=== PATIENT | male | born 1955 | race Hispanic/Latino ===

== ENCOUNTER → 2023-10-25 | Emergency (ER) | payer OTHER, MEDICARE ==
[~2023-10-25] VITALS: Ht 157.5 cm; Wt 78.0 kg
[~2023-10-25] MED LIST: OMEP40CA21 PO
[2023-10-25 16:27] VITALS: BP 153/84; PULSE 97; RESP 14
[2023-10-25 16:59] LABS: BASOPHILS # (AUTO) 0.07 K/uL (0.00-0.20); BASOPHILS % (AUTO) 0.6 % (0.0-5.0); EOSINOPHILS # (AUTO) 0.14 K/uL (0.00-0.70); EOSINOPHILS % (AUTO) 1.3 % (0.0-8.0); HEMATOCRIT 42.5 % (42-54); IMMATURE GRANULOCYTE ABSOLUTE 0.04 K/uL (0-1); LYMPHOCYTES % (AUTO) 27.4 % (21.0-51.0); MEAN CORPUSCULAR HEMOGLOBIN 29.2 pg (27.0-33.0); MEAN CORPUSCULAR HGB CONC 34.4 g/dL (32.0-36.0); MONOCYTES # (AUTO) 0.7 K/uL (0.1-1.0); MONOCYTES % (AUTO) 6.2 % (3.0-13.0); NEUTROPHILS % (AUTO) 64.1 % (40.0-77.0); PLATELET COUNT (AUTO) 206 K/uL (130-400); RED CELL DISTRIBUTION WIDTH 14.1 % (11.0-15.5); WHITE BLOOD COUNT (AUTO) 10.9 K/uL (4.8-10.8)
[2023-10-25 17:26] LABS: ALBUMIN 3.9 g/dL (3.5-5.0); BILIRUBIN,TOTAL 0.8 mg/dL (0.2-1.0); CREATININE 1.2 mg/dL (0.5-1.3); POTASSIUM 3.1 mmol/L (3.5-5.1); TOTAL PROTEIN, SERUM 8.5 g/dL (6.0-8.3)
[2023-10-25] MEDS: ONDANSETRON ODT 4MG TAB SL ONE (18:17)
[2023-10-25] MEDS: LORAZEPAM 1 MG TABLET PO ONE (18:17)
[2023-10-25] MEDS: KCL 20 MEQ ERTAB PO ONE (18:51)
== END ==
LOC: EDH 16:15
DX: R11.0 Nausea (principal); F41.9 Anxiety disorder, unspecified; I10 Essential (primary) hypertension; E78.00 Pure hypercholesterolemia, unspecified; K21.9 Gastro-esophageal reflux disease without esophagitis; E78.5 Hyperlipidemia, unspecified; F10.10 Alcohol abuse, uncomplicated
CPT/HCPCS: 36415; 71045; 80053; 83690; 83735; 83880; 84484; 85025; 93005

== ENCOUNTER 2023-10-28 09:19 | Emergency (ER) | payer OTHER, MEDICARE ==
[~2023-10-28] VITALS: Ht 157.5 cm; Wt 78.0 kg
[2023-10-28 09:42] LABS: HEMATOCRIT 42.6 % (42-54); MEAN CORPUSCULAR HEMOGLOBIN 29.6 pg (27.0-33.0); MEAN CORPUSCULAR HGB CONC 34.5 g/dL (32.0-36.0); MEAN CORPUSCULAR VOLUME 85.7 fL (79-99); RED BLOOD CELL COUNT(AUTO) 4.97 MIL/uL (4.50-6.20); RED CELL DISTRIBUTION WIDTH 14.1 % (11.0-15.5); WHITE BLOOD COUNT (AUTO) 8.3 K/uL (4.8-10.8)
[2023-10-28 10:00] LABS: ALBUMIN 3.9 g/dL (3.5-5.0); BILIRUBIN,TOTAL 1.3 mg/dL (0.2-1.0); CREATININE 1.3 mg/dL (0.5-1.3); POTASSIUM 3.1 mmol/L (3.5-5.1); TOTAL PROTEIN, SERUM 8.2 g/dL (6.0-8.3)
[2023-10-28 13:45] VITALS: BP 151/88; PULSE 69; RESP 14; O2SAT 97
[2023-10-28] MEDS ORDERED: OMEP40CA21 PO (13:47)
== END 2023-10-28 14:03 | disposition home or self-care (01) ==
LOC: EDH 09:19
DX: A05.9 Bacterial foodborne intoxication, unspecified (principal); R19.7 Diarrhea, unspecified; K21.9 Gastro-esophageal reflux disease without esophagitis; E78.00 Pure hypercholesterolemia, unspecified; I10 Essential (primary) hypertension
CPT/HCPCS: 36415; 80053; 84484; 85027; 93005

== ENCOUNTER 2024-09-06 12:26 | Inpatient (IN) | payer OTHER, MEDICARE ==
[~2024-09-06] VITALS: Ht 157.5 cm; Wt 87.5 kg
[2024-09-06] VITALS (9 sets, daily range): BP systolic 136–159; BP diastolic 64–86; PULSE 92–110; RESP 18–21; TEMP 98.2–98.5; O2SAT 91
[2024-09-06] MEDS: GLUCAGON 1MG KIT 1 MG ML IM SCH (13:22)
--- NOTE | 2024-09-06 14:14 | ERN ---
ED Note History of Present Illness Stated Complaint: FOREIGN BODY IN THROAT Chief Complaint: Swallowed Foreign Body Time Seen by MD: 12:26 Dictation: 69-year-old male presents to the ED for evaluation of foreign body in throat onset 1 hour ago. Patient reports he was eating a piece of steak and felt it got stuck in his throat, patient mentioned he was unable to swallow water. Allergies: Coded Allergies: No Known Drug Allergies (Unverified Allergy, Unknown, 10/25/23) Home Meds Active Scripts Omeprazole (Omeprazole) 40 Mg Capsule., 40 MG PO DAILY, #30 CAP Prov:RYANN BELLO [employer] 10/28/23 Past Medical History Past Medical History: GERD, High Cholesterol, Hypertension, Stroke Surgical History: Other Surgical History Other: ESOPHAGEAL DILATION Review of System Dictation Constitutional: Negative for fever,chills, and weight loss Eyes: Negative for injury, pain,redness, and discharge ENT: Throat foreign body Negative for injury,pain or swelling Cardiovascular: Negative for chest pain, palpitations, and edema Respiratory: Negative for shortness of breath, cough, and wheezing, Abdomen/GI: Negative for abdominal pain, nausea, vomiting, diarrhea, and constipation Back: Negative for injury and pain : Negative for injury, bleeding and discharge MS/Extremity: Negative for injury and deformity Skin: Negative for rash, and discoloration Neuro: Negative for headache, weakness, numbness, tingling, and seizure Psych: Negative for suicide ideation, homicidal ideation, and hallucinations Initial Vital Sign VS Vital Signs Date Time Temp Pulse Resp B/P (MAP) Pulse Ox O2 Delivery O2 Flow Rate FiO2 09/06/24 12:31 98.2 103 18 70/ 95 Room Air 0 09/06/24 14:32 21 Physical Exam Dictation General: awake, alert, appears uncomfortable Head/Face: Normocephalic, atraumatic Eyes: PERRL, EOMI, vision at baseline ENT: oral cavity clear, TMs clear, no signs of infection Neck: Trachea midline, supple, no nuchal rigidity Cardiovascular: RRR, normal S1/S2, No MRGs, no JVD Respiratory: CTAB, no respiratory distress, No rales or wheezes Abdomen: Soft, non-tender, non-distended, normal bowel sounds, no guarding or rebound. Skin: Warm, dry, normal turgor, no rash MS/Extremity: Pulses equal, no cyanosis, neurovascular intact, FROM Neuro: COAx4, GCS 15, strength 5/5, CN 2-12 intact, normal cerebellar exam, normal gait, Psych: Normal behavior, mood, and affect normal Results (Laboratory/Radiology) Laboratory/Radiology Laboratory Tests Test 09/06/24 15:45 White Blood Count 12.9 K/uL (4.8-10.8) H Red Blood Count 4.89 MIL/uL (4.50-6.20) Hemoglobin 14.6 g/dL (14.0-18.0) Hematocrit 42.5 % (42-54) Mean Corpuscular Volume 86.9 fL (79-99) Mean Corpuscular Hemoglobin 29.9 pg (27.0-33.0) Mean Corpuscular Hemoglobin Concent 34.4 g/dL (32.0-36.0) Red Cell Distribution Width 14.8 % (11.0-15.5) Platelet Count 197 K/uL (130-400) Mean Platelet Volume 10.8 fL (7.5-10.5) H Immature Granulocyte % (Auto) 0.6 % (0-1) Neutrophils (%) (Auto) 71.3 % (40.0-77.0) Lymphocytes (%) (Auto) 20.8 % (21.0-51.0) L Monocytes (%) (Auto) 5.8 % (3.0-13.0) Eosinophils (%) (Auto) 1.0 % (0.0-8.0) Basophils (%) (Auto) 0.5 % (0.0-5.0) Neutrophils # (Auto) 9.2 K/uL (1.8-7.7) H Lymphocytes # (Auto) 2.7 K/uL (1.0-4.8) Monocytes # (Auto) 0.8 K/uL (0.1-1.0) Eosinophils # (Auto) 0.13 K/uL (0.00-0.70) Basophils # (Auto) 0.07 K/uL (0.00-0.20) Absolute Immature Granulocyte (auto 0.08 K/uL (0-1) Nucleated Red Blood Cells 0.0 % (0.0-0.19) Sodium Level 140 mmol/L (136-145) Potassium Level 3.4 mmol/L (3.5-5.1) L Chloride Level 102 mmol/L (101-111) Carbon Dioxide Level 28 mmol/L (21-32) Blood Urea Nitrogen 19 mg/dL (7-18) H Creatinine 1.5 mg/dL (0.5-1.3) H Glomerular Filtration Rate Calc 49 mL/min (>90) Random Glucose 103 mg/dL (70-105) Total Calcium 9.4 mg/dL (8.5-10.1) Labs Reviewed?: Yes ED Course ED Course Orders Procedure Category Date Status Time Glucagon 1mg Kit PHA 09/06/24 In Process (Glucagon 1mg Kit) 13:00 Cbc With Differential LAB 09/06/24 Complete 15:26 Basic Metabolic Panel LAB 09/06/24 Complete 15:26 0.9% Nacl 500ml PHA 09/06/24 Complete Iv.Soln (Ns 500ml 15:30 Consent Egd CPOE 09/06/24 Transmitted 16:10 Obtain Consent For: CPOE 09/06/24 Transmitted 16:10 Current Medications Medications (Trade) Dose Ordered Sig/Pablo Route PRN Reason Start Time Stop Time Status Last Admin Dose Admin Glucagon (Glucagon 1mg Kit) 1 mg ONCE IM 09/06/24 13:00 10/06/24 12:59 09/06/24 13:22 Sodium Chloride 500 ml @ 0 mls/hr ONCE ONCE IV 09/06/24 15:30 09/06/24 15:31 DC Vital Signs Date Time Temp Pulse Resp B/P (MAP) Pulse Ox O2 Delivery O2 Flow Rate FiO2 09/06/24 15:57 98.8 87 20 164/72 100 Room Air* 0 21 09/06/24 14:32 98.8 68 20 161/63 100 Room Air* 0 21 09/06/24 12:31 98.2 103 18 70/ 95 Room Air 0 Medical Decision Making MDM MDM: Differential diagnosis: Food bolus, throat FB 5306- GI consult Dipti 1618- Hospitalist consult, accepts patient for admission Risk of complication and/or morbidity or mortality of patient management: None Medications-Per medication reconciliation Need for hospitalization: Patient does meet criteria for hospitalization. Need for emergency major/minor surgery: No There are no social concerns with this patient. I independently interpreted the test that were performed, results were reviewed by me and considered findings on radiology if ordered. DX & DISP Disposition: Inpatient Decision to Admit Date: Sep 06, 2024 Decision to Admit Time: 16:18 Departure Impression: Primary Impression: Food bolus Condition: Stable Referrals: LINH VALENTE MD (PCP) MICHELLE ROSA MD Sep 06, 2024 14:14
[2024-09-06] MEDS: 0.9% NACL 500ML IV.SOLN 500 ML IV ONE (15:30)
[2024-09-06 15:58] LABS: BASOPHILS # (AUTO) 0.07 K/uL (0.00-0.20); BASOPHILS % (AUTO) 0.5 % (0.0-5.0); EOSINOPHILS # (AUTO) 0.13 K/uL (0.00-0.70); HEMATOCRIT 42.5 % (42-54); IMMATURE GRANULOCYTE ABSOLUTE 0.08 K/uL (0-1); LYMPHOCYTES # (AUTO) 2.7 K/uL (1.0-4.8); LYMPHOCYTES % (AUTO) 20.8 % (21.0-51.0); MEAN CORPUSCULAR HEMOGLOBIN 29.9 pg (27.0-33.0); MEAN CORPUSCULAR HGB CONC 34.4 g/dL (32.0-36.0); MEAN CORPUSCULAR VOLUME 86.9 fL (79-99); MONOCYTES # (AUTO) 0.8 K/uL (0.1-1.0); MONOCYTES % (AUTO) 5.8 % (3.0-13.0); NEUTROPHILS # (AUTO) 9.2 K/uL (1.8-7.7); NEUTROPHILS % (AUTO) 71.3 % (40.0-77.0); PLATELET COUNT (AUTO) 197 K/uL (130-400); RED BLOOD CELL COUNT(AUTO) 4.89 MIL/uL (4.50-6.20); RED CELL DISTRIBUTION WIDTH 14.8 % (11.0-15.5); WHITE BLOOD COUNT (AUTO) 12.9 K/uL (4.8-10.8)
[2024-09-06 16:08] LABS: CREATININE 1.5 mg/dL (0.5-1.3); POTASSIUM 3.4 mmol/L (3.5-5.1)
--- NOTE | 2024-09-06 16:49 | HP ---
[facility] HISTORY & PHYSICAL Date Patient Seen: Sep 06, 2024 Time of Visit: 2044 Supervising Physician: [Dr. Kevin Chahal] Primary Care Physician: [Dr. Ng ] Outpatient Specialists: [ ] Inpatient Consults: [GI: Dr. Rojas/Dipti TOPETE ] PROBLEM LIST: Dysphagia and odynophagia 2/2 food impaction - POA Esophageal obstruction-POA Leukocytosis, likely reactive-POA KAI 2/2 possible dehydration -POA Mild hypokalemia-POA HX of esophageal stricture s/p dilation Primary HTN HLD HX of CVA PLAN: -Admit to medsurg unit -Patient is s/p EGD 09/06/24 for food impaction relief -Keep patient NPO until cleared by GI -IV fluids for hydration -Monitor electrolytes, replete PRN -Manage pain and N/V PRN -Supportive care and oxygenation maintenance -RN to obtain complete medlist for reconciliation HPI: [Patient is a 69-year-old male with PMH significant for previous esophageal stricture s/p dilation, HTN, HLD and prior CVA who has presented at the ED concerning food impaction. Patient claims he ate some steak this morning and got choked-up. He knew it was similar to his prior episode of obstruction as he was gagging and felt dysphagia and odynophagia so he decided to come to the ED for relief. He was initially given Glucagon without resolution so GI specialist was consulted by ED practitioner. He was eventually brought to the GI lab for EGD and afterwards, I get to evaluate him in room 305. BMP was repeated to verify status of his kidney function, potassium and magnesium level. Physical assessment was unrevealing and patient is back on his baseline. He claims he still feels a little bit of odynophagia but not as much compared from earlier. Goals of care were discussed with the patient verbalizing understanding and agreement.] PAST MEDICAL HX: see above PAST SURGICAL HX: noncontributory SOCIAL HISTORY: No tobacco, ETOH, or illicit drug use Coded Allergies: No Known Drug Allergies (Unverified Allergy, Unknown, 10/25/23) REVIEW OF SYSTEMS: 12 point ROS reviewed with patient. Pertinent positives mentioned above. Otherwise negative. PHYSICAL EXAM: GENERAL: alert, weak, awake oriented x 3 HEENT: EOMI, Sclera non icteric, moist mucosa NECK: Supple, no JVD, trachea midline, short and wide LUNGS: Clear breath sounds bilaterally. No wheezes HEART: Regular rate and rhythm. Normal S1 and S2, without murmurs ABD: Abdomen soft, nontender. Bowel sounds present EXT: No clubbing cyanosis, 2+ pitting edema on BLE NEURO: Alert and oriented to person, follows commands Vital Signs (last 8hr) Date Time Temp Pulse Resp B/P (MAP) Pulse Ox O2 Delivery O2 Flow Rate FiO2 09/06/24 15:57 98.8 87 20 164/72 100 Room Air* 0 21 09/06/24 14:32 98.8 68 20 161/63 100 Room Air* 0 21 09/06/24 12:31 98.2 103 18 70/ 95 Room Air 0 LABS: Hematology Labs: Test 09/06/24 15:45 Range/Units White Blood Count 12.9 H 4.8-10.8 K/uL Red Blood Count 4.89 4.50-6.20 MIL/uL Hemoglobin 14.6 14.0-18.0 g/dL Hematocrit 42.5 42-54 % Mean Corpuscular Volume 86.9 79-99 fL Mean Corpuscular Hemoglobin 29.9 27.0-33.0 pg Mean Corpuscular Hemoglobin Concent 34.4 32.0-36.0 g/dL Red Cell Distribution Width 14.8 11.0-15.5 % Platelet Count 197 130-400 K/uL Mean Platelet Volume 10.8 H 7.5-10.5 fL Immature Granulocyte % (Auto) 0.6 0-1 % Neutrophils (%) (Auto) 71.3 40.0-77.0 % Lymphocytes (%) (Auto) 20.8 L 21.0-51.0 % Monocytes (%) (Auto) 5.8 3.0-13.0 % Eosinophils (%) (Auto) 1.0 0.0-8.0 % Basophils (%) (Auto) 0.5 0.0-5.0 % Neutrophils # (Auto) 9.2 H 1.8-7.7 K/uL Lymphocytes # (Auto) 2.7 1.0-4.8 K/uL Monocytes # (Auto) 0.8 0.1-1.0 K/uL Eosinophils # (Auto) 0.13 0.00-0.70 K/uL Basophils # (Auto) 0.07 0.00-0.20 K/uL Absolute Immature Granulocyte (auto 0.08 0-1 K/uL Nucleated Red Blood Cells 0.0 0.0-0.19 % Chemistry Labs: Test 09/06/24 15:45 Range/Units Sodium Level 140 136-145 mmol/L Potassium Level 3.4 L 3.5-5.1 mmol/L Chloride Level 102 101-111 mmol/L Carbon Dioxide Level 28 21-32 mmol/L Blood Urea Nitrogen 19 H 7-18 mg/dL Creatinine 1.5 H 0.5-1.3 mg/dL Glomerular Filtration Rate Calc 49 >90 mL/min Random Glucose 103 70-105 mg/dL Total Calcium 9.4 8.5-10.1 mg/dL DIAGNOSTICS / RADIOLOGY RESULTS: [ ] PLAN NEURO: Minimize central acting medications as possible. Maintain fall precautions, adequate lighting during the day PULMONARY: Supplemental 02 as needed. Maintain aspiration precautions at all times CARDIOVASCULAR: Follow hemodynamics. Vital signs per facility protocol GI & NUTRITION: Continue with nutritional support. Continue stool softeners and laxatives as needed. KIDNEYS & ELECTROLYTES: Strict monitoring of intake, output and overall fluid balance. Avoid nephrotoxic medications to the extent possible. Medications to be dosed according to renal function. Monitor electrolytes and replace as needed ENDOCRINE: Maintain blood glucose between 100-180 at all times. Hypoglycemia protocol in place INFECTIOUS DISEASE: Trend temperature, WBC and procalcitonin level Follow cultures, deescalate antibiotics as soon as possible. Panculture if new onset fever ONCOLOGY/HEMATOLOGY/COAGULATION: Monitor for s/s of bleeding Monitor hemoglobin, coagulation studies as needed SKIN: Pressure ulcer prevention per facility protocol Specialty mattress ORTHO/REHAB: Continue PT/OT Prophylaxis: Continue GI and DVT prophylaxis Code Status: Full Resuscitation Disposition: TBD Other: Total patient care time: 35 minutes CLARITA LOMAS AGPCNP Sep 06, 2024 16:49
[2024-09-06] MEDS: 0.9%NACL 1000ML 1,000 ML IV SCH (17:00)
--- NOTE | 2024-09-06 17:24 | NUR ---
PT TO GI LAB WITH RN.
[2024-09-06] MEDS ORDERED: SUCCINYLCHOLINE CHLORIDE 20 MG/ML 10 ML VIAL ONE (17:32)
[2024-09-06] MEDS ORDERED: FENTanyl CITRate PF 50 MCG/1 ML 2ML VIAL ONE (17:32)
[2024-09-06] MEDS ORDERED: dexaMETHasone SOD PHOSPHATE 10MG/ML 1ML VIAL ONE (17:33)
[2024-09-06] MEDS ORDERED: LIDOCAINE PF 100MG/5ML (2%) SYRINGE 5ML ONE (17:33)
[2024-09-06] MEDS ORDERED: ondanSETRON 4MG INJ ONE (17:33)
[2024-09-06] MEDS ORDERED: proPOFol 10 MG/ML 20ML VIAL IV ONE (17:33)
[2024-09-06] MEDS: FAMOTIDINE 20MG VIAL IV ONE (17:58)
--- NOTE | 2024-09-06 18:41 | NUR ---
GI LAB CALLED FOR PT GLASSES, GLASSES ARE BEING RETURNED TO PT ROOM
--- NOTE | 2024-09-06 18:51 | NUR ---
PT TRANSPORTED TO [facility] BY GI LAB
--- NOTE | 2024-09-06 19:00 | NUR ---
ADMIT PT ARRIVED TO FLOOR WITH GI NURSE. NO REPORT WAS CALLED FROM ER NOR GI LAB TO STAFF ON FLOOR. RECEIVED REPORT FROM GI LAB STAFF. PLACED PT IN ROOM 305. ADMISSION CARE DONE. POSITIONED COMFORTABLY IN BED WITH HOB ELEVATED. STARTED PT ON POST OP V/S, STABLE. ORIENTED TO ROOM AND UNIT. IN FOR MORE CARE AND MANAGEMENT.
--- NOTE | 2024-09-06 20:15 | NUR ---
ASSESS ADMISSION ASSESSMENT DONE, PLEASE REFER TO CHART. PLACED IVF OF NS TO IV PUMP AND REGULATED AT 50CC/HR ORDERED. PROVIDED PT WITH WATER AND IS ABLE TO SWALLOW WITHOUT ANY DIFFICULTY. CONTINUED ON POST OP V/S. NOTED O2 SATS LOWER THAN 92%. PLACED PT ON O2 AT 2LPM VIA NC. O2 SATS INCREASED TO 95% WITH O2 ON. BED ALARM ACTIVATED.
--- NOTE | 2024-09-06 20:45 | NUR ---
SURGERY AID EFREM OTTO, IN TO SEE PT. NEW ORDERS RECEIVED, PLEASE REFER TO CPOE.
[2024-09-06] MEDS ORDERED: LAbetaLOL 20MG SYG IV PRN (21:00)
[2024-09-06] MEDS ORDERED: DEXTROSE 50%-WATER 50 ML DISP.SYRIN IV PRN (21:00)
[2024-09-06] MEDS ORDERED: acetaMINOPHEN 650 MG SUPPOSITORY RC PRN (21:00)
[2024-09-06] MEDS: INSULIN humuLIN R 100 UNIT/ML 3ML SQ SCH (21:00)
[2024-09-06] MEDS ORDERED: GLUCAGON 1MG KIT 1 MG ML IM PRN (21:00)
[2024-09-06] MEDS ORDERED: ondanSETRON 4MG INJ IVP PRN (21:00)
[2024-09-06] MEDS ORDERED: PoTASSium chloRIDE 10MEQ/100ML 100 ML IV PRN ×2 (21:30→22:00)
[2024-09-06 21:54] LABS: CREATININE 1.3 mg/dL (0.5-1.3); MAGNESIUM 1.9 mg/dL (1.80-2.40); POTASSIUM 3.2 mmol/L (3.5-5.1)
[2024-09-06] MEDS: PoTASSium chl 10% ELIXIR 20MEQ 20 MEQ/15 ML UDCUP PO PRN (22:02)
[2024-09-06] MEDS: MAGNESIUM 2GM PREMIX 50ML 50 ML IV PRN (22:02)
[2024-09-06] MEDS ORDERED: OMEP40CA21 PO (23:56)
[2024-09-06] MEDS ORDERED: AMLO-142 PO (23:56)
[2024-09-06] MEDS ORDERED: ROSU20TA98 PO (23:56)
[2024-09-06] MEDS ORDERED: TAMS-1 PO (23:56)
[2024-09-07] VITALS (7 sets, daily range): BP systolic 128–154; BP diastolic 74–93; PULSE 93–105; RESP 17–19; TEMP 98–98.4; O2SAT 95
[2024-09-07 04:40] LABS: BASOPHILS # (AUTO) 0.01 K/uL (0.00-0.20); BASOPHILS % (AUTO) 0.1 % (0.0-5.0); HEMATOCRIT 41.3 % (42-54); IMMATURE GRANULOCYTE ABSOLUTE 0.03 K/uL (0-1); LYMPHOCYTES % (AUTO) 10.1 % (21.0-51.0); MEAN CORPUSCULAR HEMOGLOBIN 29.2 pg (27.0-33.0); MEAN CORPUSCULAR HGB CONC 33.9 g/dL (32.0-36.0); MEAN CORPUSCULAR VOLUME 86.2 fL (79-99); MONOCYTES # (AUTO) 0.1 K/uL (0.1-1.0); MONOCYTES % (AUTO) 1.1 % (3.0-13.0); NEUTROPHILS # (AUTO) 8.7 K/uL (1.8-7.7); NEUTROPHILS % (AUTO) 88.4 % (40.0-77.0); PLATELET COUNT (AUTO) 193 K/uL (130-400); RED BLOOD CELL COUNT(AUTO) 4.79 MIL/uL (4.50-6.20); RED CELL DISTRIBUTION WIDTH 14.7 % (11.0-15.5); WHITE BLOOD COUNT (AUTO) 9.8 K/uL (4.8-10.8)
[2024-09-07 05:05] LABS: CREATININE 1.1 mg/dL (0.5-1.3); MAGNESIUM 2.4 mg/dL (1.80-2.40); PHOSPHORUS 1.8 mg/dL (2.5-4.9); POTASSIUM 3.4 mmol/L (3.5-5.1); THYROID STIMULATING HORMONE 1.02 uIU/mL (0.36-3.74)
--- NOTE | 2024-09-07 05:45 | NUR ---
KCL PT SLEPT AT INTERVALS DURING THE SHIFT. NO CONCERNS VERBALIZED. NO DISTRESS NOTED. KCL RE-CHECK=3.4. STARTED PO COVERAGE PER PROTOCOL, TOLERATED WELL. KEPT COMFORTABLE. FOR MORE CARE.
[2024-09-07] MEDS: FAMOTIDINE 20MG VIAL IV SCH (09:18)
[2024-09-07] MEDS: PoTASSium chloRIDE 20MEQ ER 20 MEQ ERTAB PO PRN (09:18)
--- NOTE | 2024-09-07 11:24 | NUR ---
DCP:HOME Sw met with pt who lives alone in his apt at [facility]. Pt's ex Meaghan Velazco [phone] is his provider 28hrs a week thru [facility]. She assists pt with ADLS, home management and meal prep. Pt states he needs his walker to ambulate, and has a shower chair. PCP is Salvador Ng and uses [facility] for rx. Discussed MPOA. Pt has directives in place but not MPOA. Pt has 3 sons and a brother that do not want to be involved in his care/life, reports ex . Encouraged pt to consider completing MPOA. Pt wants to think about it. Addendum: 09/07/24 at 1128 by TERI CHURCHILL Amended: Links added.
--- NOTE | 2024-09-07 15:02 | DS ---
[facility] DISCHARGE SUMMARY Date Patient Seen: Sep 07, 2024 Time of Visit: 15:02 Supervising Physician: [Dr. Schroeder] Primary Care Physician: [Dr. Ng ] Outpatient Specialists: [ ] Inpatient Consults: [GI: Dr. Rojas/Dipti TOPETE ] PROBLEM LIST: Dysphagia and odynophagia 2/2 food impaction - POA Esophageal obstruction-POA Leukocytosis, likely reactive-POA KAI 2/2 possible dehydration -POA Mild hypokalemia-POA HX of esophageal stricture s/p dilation Primary HTN HLD HX of CVA PLAN: s/p EGD 09/06/24 for food impaction relief -IV fluids for hydration -Monitor electrolytes, replete PRN -Supportive care and oxygenation maintenance HOSPITAL COURSE: HPI (per admitting provider) [Patient is a 69-year-old male with PMH significant for previous esophageal stricture s/p dilation, HTN, HLD and prior CVA who has presented at the ED concerning food impaction. Patient claims he ate some steak this morning and got choked-up. He knew it was similar to his prior episode of obstruction as he was gagging and felt dysphagia and odynophagia so he decided to come to the ED for relief. He was initially given Glucagon without resolution so GI specialist was consulted by ED practitioner. He was eventually brought to the GI lab for EGD and afterwards, I get to evaluate him in room 305. BMP was repeated to verify status of his kidney function, potassium and magnesium level. Physical assessment was unrevealing and patient is back on his baseline. He claims he still feels a little bit of odynophagia but not as much compared from earlier. Goals of care were discussed with the patient verbalizing understanding and agreement.] Patient underwent EGD for removal of food bolus. The patient was stabilized, without respiratory distress on room air. His white blood count returned to normal limits, KAI resolved with creatinine from 1.5-1.1. Patient was able to advance diet to GI soft which he tolerated well. Denied any nausea, vomiting or abdominal pain. No concerns voiced prior to discharge. Patient advised to follow-up with GI outpatient for EGD results. Follow up with PCP in 2-3 days for re-evaluation. CHRONIC PROBLEMS: continue previous management per PCP unless otherwise indicated INFORMATION CODER FINDINGS/RECOMMENDATIONS: [Advance to GI soft diet] PROCEDURES: as mentioned above DISCHARGE MEDICATIONS: As listed below, same as previous. Pt hemodynamically stable and afebrile at time of discharge. PCP notified of patients admission, hospital course and discharge. Continued Medications: Amlodipine Besylate/Benazepril (Amlodipine-Benazepril 10-40 mg) 10 Mg-40 Mg Capsule 1 CAP PO DAILY Omeprazole (Omeprazole) 40 Mg Capsule.dr 40 MG PO DAILY, CAP Rosuvastatin Calcium (Rosuvastatin Calcium) 20 Mg Tablet 1 TAB PO HS Tamsulosin HCl (Flomax) 0.4 Mg Cap.er.24h 0.4 MG PO DAILY, CAPSULE.DR PHYSICAL EXAM: GENERAL: alert, weak, awake oriented x 3 HEENT: EOMI, Sclera non icteric, moist mucosa NECK: Supple, no JVD, trachea midline, short and wide LUNGS: Clear breath sounds bilaterally. No wheezes HEART: Regular rate and rhythm. Normal S1 and S2, without murmurs ABD: Abdomen soft, nontender. Bowel sounds present EXT: No clubbing cyanosis, 2+ pitting edema on BLE NEURO: Alert and oriented to person, follows commands FOLLOW-UP: Follow-up with PCP in 2-3 days. Follow-up with GI in 1-2 weeks for EGD results. RECOMMENDATIONS: See Discharge Instructions This case was seen and discussed with my supervising physician. More than 30 minutes spent on discharge process, including evaluation of the patient, discussion with nursing staff, medication reconciliation and follow-up appointments YANIQUE OSMAN Sep 07, 2024 15:02
--- NOTE | 2024-09-07 16:09 | NUR ---
SPEECH TRIGGER COMPLETED. Pt IS A 69 Y.O. MALE ADMITTED SECONDARY TO FOOD BOLUS AND THROAT FB. Pt HAS A PAST MEDICAL HISTORY SIGNIFICANT FOR HYPERTENSION, HYPERLIPIDEMIA, ESOPHAGEAL STRICTURE S/P DILATION AND CVA. Pt CURRENTLY ON GI SOFT DIET (REGULAR TEXTURE AND THIN LIQUIDS). PLEASE REQUEST SPEECH THERAPY SERVICES FOR SKILLED BEDSIDE SWALLOW EVALUATION IF Pt PRESENTS WITH +S/S OF ASPIRATION SUCH COUGH RESPONSE, THROAT CLEAR, OR WET VOCAL QUALITY DURING ORAL INTAKE. Addendum: 09/07/[address] [facility] Amended: Links added.
--- NOTE | 2024-09-07 16:44 | NUR ---
Patient was discharged, all discharge documentation and personal items taken by patient and patient provider (Meaghan). Patient informed to follow up with primary care provider in 3-7 days and with GI specialist in 1-2 weeks for biopsy results. No new scripts provided. IV and telemetry pack were removed, patient transported out of facility via wheelchair by Nurse Tran.
== END 2024-09-07 16:50 | disposition home or self-care (01) | DRG 394 ==
LOC: EDH 12:26 → EDHIP 16:46 → 3BH 19:54
PROVIDERS: ADMIT Internal Medicine Critical Care Medicine; ATTEND Internal Medicine Critical Care Medicine
PROC: 0DC38ZZ Extirpation of Matter from Lower Esophagus, Via Natural or Artificial Opening Endoscopic (ICD-10-PCS; principal; 2024-09-06)
DX: T18.128A Food in esophagus causing other injury, initial encounter (principal); N17.9 Acute kidney failure, unspecified; K22.2 Esophageal obstruction; D72.829 Elevated white blood cell count, unspecified; E87.6 Hypokalemia; I10 Essential (primary) hypertension; E78.5 Hyperlipidemia, unspecified; W44.9XXA Unspecified foreign body entering into or through a natural orifice, initial encounter; E78.00 Pure hypercholesterolemia, unspecified; K21.9 Gastro-esophageal reflux disease without esophagitis; Z86.73 Personal history of transient ischemic attack (TIA), and cerebral infarction without residual deficits
CPT/HCPCS: 36415; 43247; 80048; 82948; 83735; 84100; 84443; 85025; 96372; 99285; G0378; J0330; J1100; J1610; J2003; J2405; J2704; J3010; J3475; J3490; J7030; A4215; A4222; A4223; A4657; A7002

== ENCOUNTER → 2025-04-11 | Outpatient (CLI) | payer OTHER, MEDICAID ==
[~2025-04-11] MED LIST changes: +AMLO-142 PO; +ROSU20TA98 PO; +TAMS-55 PO
--- NOTE | 2025-04-12 08:07 | HMCIMG ---
EXAMINATION: ULTRASOUND OF THE SCROTUM. CLINICAL HISTORY: Left testicle pain. COMPARISON: None. TECHNIQUE: Real-time grayscale ultrasound images of the testes. FINDINGS: Both the testicles are in caliber, and echotexture. The right testicle measures 4.2 x 2.4 x 2.3 cm. The left testicle measures 3.8 x 1.8 x 2.9 cm. There is a hyperechoic focus that measures 0.2 x 0.1 x 0.2 cm in the upper pole. There is patent flow in both the testicles. No abnormal echotexture. Both the epididymides are normal in appearance. The right epididymis measures 0.6 x 0.7 cm. There is a cyst that measures 0.4 x 0.4 x 0.4 cm in the head. The left epididymis measures 0.7 x 0.9 cm. There is a cyst that measures -0.7 x0.6 x 0.8 cm in the head. There is no varicocele. There are small bilateral hydroceles that measure 5.6 x 1.2 x 2.3 cm on the right side and 2.9 x 0.6 x 2.0 cm on the left side. The scrotal wall appears normal. IMPRESSION: Left testicular microlithiasis. Simple cysts in the head of the bilateral epididymides. Small bilateral hydroceles. No evidence of testicular torsion. /[place]
== END | disposition home or self-care (01) ==
LOC: RAH 10:32
PROVIDERS: ATTEND Family Medicine
DX: N50.3 Cyst of epididymis (principal); N50.89 Other specified disorders of the male genital organs; N50.812 Left testicular pain; N43.3 Hydrocele, unspecified
CPT/HCPCS: 76870